=== PATIENT | female | born 1960 | race Two or more races ===

== ENCOUNTER 2024-04-06 08:32 | Inpatient (IN) | payer OTHER ==
[~2024-04-06] VITALS: Ht 149.9 cm; Wt 65.8 kg
[2024-04-06] MEDS ORDERED: DICY20TA PO (09:14)
--- NOTE | 2024-04-06 09:16 | NUR ---
SE RECIBE PTE ALERTA Y ORIENTADA X3. PTE REFIERE DOLOR ABDOMINAL HACE 4 LANDRY. SE MIDEN S/V Y SE UBICA.
[2024-04-06] MEDS ORDERED: RINGERS SOLUTION,LACTATED 1,000 ML IV STA (10:28)
[2024-04-06] MEDS ORDERED: PIPERACILLIN/TAZOBACTAM SODIUM 3.375 GM VIAL IV STA (10:30)
[2024-04-06] MEDS ORDERED: MEPERIDINE HCL/PF 50 MG/ML VIAL IM STA (10:31)
[2024-04-06] MEDS ORDERED: PIPERACILLIN/TAZOBACTAM SODIUM 3.375 GM VIAL IV ONE (11:47)
[2024-04-06 12:20] LABS: URINE APPEARANCE Cloudy; URINE BILIRRUBIN Negative (NEGATIVE); URINE BLOOD Negative; URINE COLOR Yellow; URINE GLUCOSE Negative (NEGATIVE); URINE KETONE 15 (NEGATIVE); URINE LEUKOCYTE Negative; URINE NITRATE Negative; URINE PROTEIN Trace (NEGATIVE); URINE UROBILINOGEN 0.2 E.U./dl
[2024-04-06 12:21] LABS: URINE BACTERIA 1537.2 uL (0.0-1933); URINE EPITHELIAL CELLS 70.2 uL (0.0-38.8); URINE RBC 25.3 uL (0.0-20.8); URINE WBC 6.8 uL (0.0-23.2)
[2024-04-06 12:25] LABS: HEMATOCRIT 46.7 % (36.0-45.00); HEMOGLOBIN 15.5 g/dL (12.0-15.00); MEAN CORPUSCULAR HEMOGLOBIN 30.5 pg (27.00-32.0); MEAN CORPUSCULAR HGB CONC 33.1 g/dl (32.0-36.0); PLATELET COUNT 275 K/uL (150-450); RED BLOOD COUNT 5.08 M/uL (4.00-6.00); RED CELL DISTRIBUTION WIDTH 12.6 % (11.5-14.5)
[2024-04-06 12:33] LABS: URINE CAST 0.88 uL (0.0-1.40)
[2024-04-06 12:38] LABS: INR 1.05; PARTIAL THROMBOPLASTIN TIME 27.3 SECONDS (22.0-34.0); PROTHROMBIN TIME 11.4 SECONDS (9.0-11.5)
[2024-04-06 12:48] LABS: ALBUMIN 4.2 gm/dL (3.4-5.0); BILIRUBIN TOTAL 0.88 mg/dL (0.3-1.2); BILIRUBIN,CONJUGATED 0.23 mg/dL (0.0-0.2); BILIRUBIN,UNCONJUGATED 0.65 mg/dL (0.0-0.6); CALCIUM 9.7 mg/dL (8.5-10.1); CREATININE SERUM 0.85 mg/dL (0.55-1.02); GFR 67.99; POTASSIUM 4.64 mEq/L (3.5-5.1); TOTAL PROTEIN 8.1 gm/dL (6.4-8.2)
[2024-04-06] MEDS ORDERED: PIPERACILLIN/TAZOBACTAM SODIUM 3.375 GM in 0.9 % SODIUM CHLORIDE 100 ML IV SCH (18:00)
[2024-04-06] MEDS ORDERED: 0.9 % SODIUM CHLORIDE 1,000 ML IV SCH (21:00)
[2024-04-06] MEDS ORDERED: MORPHINE SULFATE 4 MG/ML CARTRIDGE IV PRN (21:00)
[2024-04-07 01:00] VITALS: BP 125/73; O2SAT 98
[2024-04-07] MEDS ORDERED: PANTOPRAZOLE SODIUM 40 MG/VIAL VIAL IV SCH (09:00)
[2024-04-07 14:24] LABS: HEMATOCRIT 41.5 % (36.0-45.00); HEMOGLOBIN 13.7 g/dL (12.0-15.00); MEAN CELL VOLUME 92.6 fL (80.00-100.00); MEAN CORPUSCULAR HEMOGLOBIN 30.6 pg (27.00-32.0); MEAN CORPUSCULAR HGB CONC 33.1 g/dl (32.0-36.0); PLATELET COUNT 223 K/uL (150-450); RED BLOOD COUNT 4.48 M/uL (4.00-6.00); RED CELL DISTRIBUTION WIDTH 12.8 % (11.5-14.5)
[2024-04-07 14:45] LABS: CALCIUM 8.6 mg/dL (8.5-10.1); CREATININE SERUM 0.71 mg/dL (0.55-1.02); GFR 83.69; POTASSIUM 4.04 mEq/L (3.5-5.1)
[2024-04-07] MEDS ORDERED: ACETAMINOPHEN 500 MG GEL..CAP PO PRN (15:15)
[2024-04-07 16:00] VITALS: BP 90/64; O2SAT 96
[2024-04-08] VITALS: BP 105/60; O2SAT 97
[2024-04-08 07:51] LABS: HEMATOCRIT 38.6 % (36.0-45.00); MEAN CORPUSCULAR HEMOGLOBIN 31.3 pg (27.00-32.0); MEAN CORPUSCULAR HGB CONC 33.7 g/dl (32.0-36.0); PLATELET COUNT 222 K/uL (150-450); RED BLOOD COUNT 4.15 M/uL (4.00-6.00); RED CELL DISTRIBUTION WIDTH 12.8 % (11.5-14.5)
[2024-04-08 08:00] VITALS: BP 95/57; O2SAT 95
[2024-04-08] MEDS ORDERED: POLYETHYLENE GLYCOL 3350 17 GM BLIST.PACK PO SCH (09:00)
== END 2024-04-08 14:41 | disposition home or self-care (01) | DRG 331 ==
LOC: ER 08:35 → SURH 14:50
PROVIDERS: General Practice; Specialist; Student in an Organized Health Care Education/Training Program; ADMIT Internal Medicine; ATTEND Internal Medicine
PROC: 0DBH4ZZ Excision of Cecum, Percutaneous Endoscopic Approach (ICD-10-PCS; 2024-04-06)
PROC: 0DTJ4ZZ Resection of Appendix, Percutaneous Endoscopic Approach (ICD-10-PCS; principal; 2024-04-06 18:30)
DX: K35.30 Acute appendicitis with localized peritonitis, without perforation or gangrene (principal)